=== PATIENT | male | born 1955 | race Caucasian/White ===

== ENCOUNTER 2016-12-15 10:19 | Inpatient (IN) | payer OTHER, MEDICARE ==
[~2016-12-15] VITALS: Ht 180.3 cm; Wt 86.8 kg
[2016-12-15] VITALS (9 sets, daily range): BP systolic 154–197; BP diastolic 77–97; PULSE 69–78; RESP 16–20; TEMP 97.9–99.5; O2SAT 94–97
[~2016-12-15 10:19] MED LIST: AMLO10 PO; FLUO5CRE EXT; GLYB5TAB3 PO; HYDR50TA5 PO; METF850T PO; METO50TA PO
[2016-12-15] MEDS ORDERED: HYDR12.56 PO (10:52)
[2016-12-15] MEDS ORDERED: METO-426 PO (10:52)
[2016-12-15] MEDS ORDERED: AMLO10TA2 PO (10:52)
[2016-12-15] MEDS ORDERED: METF850T PO (10:52)
[2016-12-15] MEDS ORDERED: [UNRECOGNIZED DRUG - CODE] PO (10:52)
[2016-12-15] MEDS ORDERED: NAPR500T PO (10:52)
[2016-12-15] MEDS ORDERED: SODIUM CHLORIDE 0.9% FLUSH 5 ML FLUSH IVF PRN ×2 (11:15→14:45)
[2016-12-15 11:35] LABS: AUTOMATED NEUTROPHIL # 6.2 TH/MM3 (1.8-7.7); BASOPHIL % 0.5 % (0.0-2.0); EOSINOPHIL # 0.3 TH/MM3 (0-0.4); EOSINOPHIL % 3.4 % (0.0-4.0); HEMATOCRIT 41.6 % (39.0-51.0); HEMO FLAGS DIFF FINAL; LYMPH % 20.1 % (9.0-44.0); LYMPHOCYTE # 1.8 TH/MM3 (1.0-4.8); MEAN CELL VOLUME 95.9 FL (80.0-100.0); MEAN CORPUSCULAR HEMOGLOBIN 32.7 PG (27.0-34.0); MEAN CORPUSCULAR HGB CONC 34.1 % (32.0-36.0); MONO % 7.1 % (0.0-8.0); NEUT % 68.9 % (16.0-70.0); PLATELET COUNT 346 TH/MM3 (150-450); RED BLOOD COUNT 4.34 MIL/MM3 (4.50-5.90); WHITE BLOOD COUNT 8.9 TH/MM3 (4.0-11.0)
[2016-12-15 11:54] LABS: CHLORIDE 104 MEQ/L (98-107); POTASSIUM 4.2 MEQ/L (3.5-5.1); SODIUM (NA) 141 MEQ/L (136-145)
[2016-12-15 11:58] LABS: ANION GAP 7 MEQ/L (5-15); BICARBONATE 30.1 MEQ/L (21.0-32.0); BLOOD UREA NITROGEN 21 MG/DL (7-18)
[2016-12-15 11:59] LABS: APTT (PATIENT) 29.5 SEC (24.3-30.1); INTERNATIONAL NORMALIZED RATIO 0.9 RATIO; PROTHROMBIN TIME - PATIENT 10.2 SEC (9.8-11.6)
[2016-12-15 12:01] LABS: ALT (GPT) 16 U/L (12-78); AST (GOT) 10 U/L (15-37); GLOMERULAR FILTRATION RATE 47 ML/MIN (>89)
[2016-12-15 12:03] LABS: TOTAL BILIRUBIN ADULT 0.7 MG/DL (0.2-1.0)
[2016-12-15 12:04] LABS: ALKALINE PHOSPHATASE 93 U/L (45-117)
--- NOTE | 2016-12-15 12:04 | RADHPO ---
EXAM DATE/TIME: 12/15/2016 16:50 [facility] COMPARISON: No previous studies available for comparison. INDICATIONS : Left leg numbness and swelling. MEDICAL HISTORY : None. Diabetic. Cardiovascular problems. Hypertension. Eye cancer. SURGICAL HISTORY : Left eye removed. ENCOUNTER: Initial ACUITY: 3 days PAIN SCORE: 0/10 LOCATION: Left leg. TECHNIQUE: Venous ultrasound of the leg was performed from the inguinal ligament to the proximal calf. Real-coby e, color Doppler and spectral tracing, compression and augmentation techniques were used. FINDINGS: There is normal compressibility of the deep venous system from the inguinal region to the proximal ca lf. No echogenic clot is seen in the lumen of the common femoral, femoral, popliteal, and posterior tibial veins. There is a normal response of the venous system to proximal and distal augmentation an d respiration. CONCLUSION: 1. No evidence of deep venous thrombosis. Raphael Connor MD on December 15, 2016 at 12:02 Board Certified Radiologist. This report was verified electronically.
--- NOTE | 2016-12-15 12:47 | RADHPO ---
EXAM DATE/TIME: 12/15/2016 12:16 [facility] COMPARISON: CT BRAIN W/O CONTRAST, January 06, 2013, 10:35. INDICATIONS : Left lower extremity weakness. RADIATION DOSE: 59.54 CTDIvol (mGy) MEDICAL HISTORY : Hypertension. Diabetes. Left eye cancer. Skin cancer. SURGICAL HISTORY : Left removed secondary to cancer. ENCOUNTER: Initial ACUITY: 3 days PAIN SCALE: 0/10 LOCATION: cranial TECHNIQUE: Multiple contiguous axial images were obtained of the head. Using automated exposure control and adjustment of the mA and/or kV according to patient size, radiation dose was kept as low as reasonably achievable to obtain optimal diagnostic quality images. FINDINGS: CEREBRUM: The ventricles are normal for age. No evidence of midline shift, mass lesion, hemorrha ge or acute infarction. No extra-axial fluid collections are seen. POSTERIOR FOSSA: The cerebellum and brainstem are intact. The 4th ventricle is midline. The cer ebellopontine angle is unremarkable. EXTRACRANIAL: The visualized portion of the orbits is intact. SKULL: The calvaria is intact. No evidence of skull fracture. CONCLUSION: Negative for acute process. Elian Shafer MD FACR on December 15, 2016 at 12:30 Board Certified Radiologist. This report was verified electronically.
--- NOTE | 2016-12-15 13:46 | PD ---
HPI Chief Complaint: Numbness/Tingling Time Seen by Provider: 10:32 Travel History International Travel<30 days: No Contact w/Intl Traveler<30days: No Traveled to known affect area: No History of Present Illness HPI 61-year-old male presents emergency Department with 2 complaints. First complaint is that he has had left lower extremity swelling for the past 2-3 days. Denies any stasis history history of blood clots. Patient denies any shortness of breath chest pain nausea vomiting diarrhea. Patient has a secondary complaint of a facial. 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 He does take medicine for this. States he follows with Dr. Moreno. Apparently 2 days ago patient had fairly sudden onset of a phase and also generalized weakness. His daughter is accompanying him today and states that he was unable to rise from his couch. States that over the next 2 days he had gradual return of his speech but is still having some mild difficulty finding words. Daughter states that she did not notice any facial asymmetry at that time no fevers no headache. A call Dr. Moreno for advice on these symptoms and he told them to come to the emergency department. [facility] Past Medical History Arthritis: Yes Cancer: Yes (SKIN) Cardiovascular Problems: Yes (HTN) Diabetes: Yes (TYPE 2) Patient Takes Glucophage: Yes Diminished Hearing: No Gout: Yes Genitourinary: Yes Hypertension: Yes Kidney Stones: Yes Musculoskeletal: Yes Neurologic: No Reproductive: No Respiratory: No Tetanus Vaccination: Unknown Past Surgical History Abdominal Surgery: No Cardiac Surgery: No Ear Surgery: No Endocrine Surgery: No Eye Surgery: Yes (LT EYE FOR CA) Genitourinary Surgery: Yes (KIDNEY STONE "SOUND TX") Gynecologic Surgery: No Neurologic Surgery: No Oral Surgery: No Thoracic Surgery: No Other Surgery: Yes (FACIAL SKIN CA REMOVED) Social History Alcohol Use: Yes ("RARELY") Tobacco Use: No (QUIT 2013) Substance Use: No Allergies-Medications (Allergen,Severity, Reaction): Coded Allergies: No Known Allergies (Verified , 12/15/16) Reported Meds & Prescriptions Reported Meds & Active Scripts Active Reported Hydrochlorothiazide 12.5 Mg Tab 50 Mg PO DAILY Amlodipine (Amlodipine Besylate) 10 Mg Tab 10 Mg PO DAILY Metformin (Metformin HCl) 850 Mg Tab 850 Mg PO BIDPC With meals Naproxen 500 Mg Tab 500 Mg PO BID PRN Xenazine (Tetrabenazine) 12.5 Mg Tab 25 Mg PO DAILY Metoprolol Tartrate 75 Mg Tab 100 Mg PO DAILY Review of Systems Except as stated in HPI: all other systems reviewed are Neg Physical Exam Narrative GENERAL: Well-developed well-nourished no apparent distress SKIN: Warm and dry. HEAD: Atraumatic. Normocephalic. EYES: Pupils equal and round. No scleral icterus. No injection or drainage. ENT: No nasal bleeding or discharge. Mucous membranes pink and moist. NECK: Trachea midline. No JVD. CARDIOVASCULAR: Regular rate and rhythm. No murmur appreciated. 2+ bilateral equal pulses in all 4 extremities RESPIRATORY: No accessory muscle use. Clear to auscultation. Breath sounds equal bilaterally. GASTROINTESTINAL: Abdomen soft, non-tender, nondistended. Hepatic and splenic margins not palpable. MUSCULOSKELETAL: No obvious deformities. No clubbing. No cyanosis. There is pitting edema of the left lower extremity from the patella distally. NEUROLOGICAL: Awake and alert. Patient has slow movement tremors of all 4 extremities. Could be consistent with [place]'s chorea. He is able to follow commands in all 4 extremities is 5 out of 5 strength. Cranial nerves II through XII are grossly intact and nonfocal. Speech appears fairly normal to me. PSYCHIATRIC: Appropriate mood and affect; insight and judgment normal. Data Data Last Documented VS Vital Signs Date Time Temp Pulse Resp B/P Pulse Ox O2 Delivery O2 Flow Rate FiO2 12/15/16 12:51 70 16 162/80 97 Room Air 12/15/16 10:21 98.4 Orders Electrocardiogram (12/15/16 11:04) Complete Blood Count With Diff (12/15/16 11:04) Comprehensive Metabolic Panel (12/15/16 11:04) Prothrombin Time / Inr (Pt) (12/15/16 11:04) Act Partial Throm Time (Ptt) (12/15/16 11:04) Troponin I (12/15/16 11:04) Thyroid Stimulating Hormone (12/15/16 11:04) Urinalysis - C+S If Indicated (12/15/16 11:04) Ct Brain W/O Iv Contrast(Rout) (12/15/16 11:04) Blood Glucose (12/15/16 11:04) Ecg Monitoring (12/15/16 11:04) Iv Access Insert/Monitor (12/15/16 11:04) Oximetry (12/15/16 11:04) Sodium Chloride 0.9% Flush (Ns Flush) (12/15/16 11:15) Us Leg Venous Doppler (12/15/16 11:04) Admit Order (Ed Use Only) (12/15/16 ) Labs Laboratory Tests Test 12/15/16 11:20 White Blood Count 8.9 TH/MM3 Red Blood Count 4.34 MIL/MM3 Hemoglobin 14.2 GM/DL Hematocrit 41.6 % Mean Corpuscular Volume 95.9 FL Mean Corpuscular Hemoglobin 32.7 PG Mean Corpuscular Hemoglobin 34.1 % Concent Red Cell Distribution Width 14.0 % Platelet Count 346 TH/MM3 Mean Platelet Volume 7.9 FL Neutrophils (%) (Auto) 68.9 % Lymphocytes (%) (Auto) 20.1 % Monocytes (%) (Auto) 7.1 % Eosinophils (%) (Auto) 3.4 % Basophils (%) (Auto) 0.5 % Neutrophils # (Auto) 6.2 TH/MM3 Lymphocytes # (Auto) 1.8 TH/MM3 Monocytes # (Auto) 0.6 TH/MM3 Eosinophils # (Auto) 0.3 TH/MM3 Basophils # (Auto) 0.0 TH/MM3 CBC Comment DIFF FINAL Differential Comment Prothrombin Time 10.2 SEC Prothromb Time International 0.9 RATIO Ratio Activated Partial 29.5 SEC Thromboplast Time Sodium Level 141 MEQ/L Potassium Level 4.2 MEQ/L Chloride Level 104 MEQ/L Carbon Dioxide Level 30.1 MEQ/L Anion Gap 7 MEQ/L Blood Urea Nitrogen 21 MG/DL Creatinine 1.50 MG/DL Estimat Glomerular Filtration 47 ML/MIN Rate Random Glucose 147 MG/DL Calcium Level 8.9 MG/DL Total Bilirubin 0.7 MG/DL Aspartate Amino Transf 10 U/L (AST/SGOT) Alanine Aminotransferase 16 U/L (ALT/SGPT) Alkaline Phosphatase 93 U/L Troponin I LESS THAN 0.02 NG/ML Total Protein 8.1 GM/DL Albumin 3.5 GM/DL Thyroid Stimulating Hormone 1.600 uIU/ML 3rd Gen [facility] Medical Decision Making Medical Screen Exam Complete: Yes Emergency Medical Condition: Yes Interpretation(s) EKG shows normal sinus rhythm with a normal axis and a normal R wave progression. No concerning ST T changes. This is a normal EKG. Differential Diagnosis TIA versus CVA versus neurologic movement disorder versus DVT versus electro- light abnormality versus medication reaction. Narrative Course Patient roomed in the emergency department, signs symptoms consistent with DVT however DVT ultrasound is negative. Certainly could consider his long-term medication as a possibility for his a facial though his symptoms are more concerning for possibility of TIA. A CT head is negative elect lites and blood work are negative at this time. I discussed with the patient at length that he is at risk of having a recurrent stroke within the next 30 days and recommended admission for further risk stratification. Initially reluctant he is agreeable ultimately after his daughter convinced him to stay. Patient was discussed with Dr. Koenig who will admit under observation status. Diagnosis Primary Impression: TIA (transient ischemic attack) Qualified Code: G45.9 - Transient cerebral ischemia, unspecified type Admitting Information Admitting Physician Requests: Observation Condition: Stable Gregor Lebron MD Dec 15, 2016 13:46
[2016-12-15 16:06] LABS: BLOOD, URINE NEG (NEG); GLUCOSE,URINE NEG (NEG); KETONE, URINE NEG (NEG); NITRITE,URINE NEG (NEG); PH, URINE 6.5 (5.0-8.5)
--- NOTE | 2016-12-15 16:08 | RADHPO ---
EXAM DATE/TIME: 12/15/2016 15:44 [facility] COMPARISON: CT BRAIN W/O CONTRAST, December 15, 2016, 12:16. INDICATIONS : Left lower extremity weakness. MEDICAL HISTORY : Hypertension. Diabetes mellitus type 2. carcinoma, eye SURGICAL HISTORY : left eye removed ENCOUNTER: Subsequent ACUITY: 3 day PAIN SCORE: 0/10 LOCATION: cranial TECHNIQUE: Multiplanar, multisequence MRI of the brain was performed without contrast. FINDINGS: CEREBRUM: The ventricles are normal for age. No evidence of midline shift, mass lesion, hemorrhage. A few tiny bilateral old lacunar infarcts are noted in the basal ganglia. No extraaxial fluid collections are seen. The pituitary gland and suprasellar cistern are normal in configuration. WHITE MATTER: No significant signal abnormalities are seen in the white matter. A few high signal spots are seen in the white matter tracts characteristic of ischemic demyelinization This correlates with patient's ag e. POSTERIOR FOSSA: The cerebellum and brainstem are intact. The 4th ventricle is midline. The cerebellopontine angle is unremarkable. The cerebellar tonsils are normal in position. Chronic changes in the midbrain. DIFFUSION IMAGING: Focal small area of restricted diffusion is seen in the high right mid parietal area measuring approx imately 1.3 cm. Characteristic for a focal small acute ischemic infarction. No intracranial hemorrhag e is demonstrated. EXTRACRANIAL: The visualized portions of the orbits and paranasal sinuses are unremarkable. CONCLUSION: 1. Small focal area of restricted diffusion in the high right mid parietal area characteristic of a s mall focal acute nonhemorrhagic ischemic infarct. 2. Several tiny old bilateral lacunar infarcts 3. Chronic white matter changes characteristic for patient's age. Mathieu Michaud MD on December 15, 2016 at 16:02 Board Certified Radiologist. This report was verified electronically.
--- NOTE | 2016-12-15 16:10 | RADHPO ---
EXAM DATE/TIME: 12/15/2016 15:44 [facility] COMPARISON: MRA BRAIN W/O CONTRAST, January 07, 2013, 13:21. INDICATIONS : Left leg weakness. MEDICAL HISTORY : Hypertension. Diabetes mellitus type 2. carcinoma, eye SURGICAL HISTORY : Left eye removed ENCOUNTER: Subsequent ACUITY: 3 day PAIN SCORE: 0/10 LOCATION: cranial Please note a normal MRA of the brain does not entirely exclude the possibility of a small aneurysm, nor the possibility of distal intracranial vessel disease. TECHNIQUE: 3D time of flight MRA was performed. Source images, multiplanar STS MIP, and 3D volume MIP reconstru ctions were reviewed. FINDINGS: There is excellent visualization of the major intracranial arteries out to the second-order branch ve ssels. There is no evidence for aneurysm, vessel truncation or stenosis, and no evidence for vascula r malformation. There is a patent right posterior communicating artery. No new or significant changes compared to the prior exam from 2012. CONCLUSION: Stable and unremarkable MRA brain compared to the prior study from 2012. Mathieu Michaud MD on December 15, 2016 at 16:07 Board Certified Radiologist. This report was verified electronically.
[2016-12-15 16:14] LABS: URINE COLOR STRAW (YELLW/STRAW)
[2016-12-15 16:15] LABS: COMMENT (UR) CULT NOT INDICATED; CULTURE IF INDICATED CULT NOT INDICATED; SQUAMOUS EPITHELIAL CELL URINE 0-2 /hpf (0-5)
--- NOTE | 2016-12-15 16:23 | RADHPO ---
EXAM DATE/TIME: 12/15/2016 15:59 [facility] COMPARISON: US CAROTID ARTERIES, January 07, 2013, 7:59. INDICATIONS : Cerebrovascular accident. MEDICAL HISTORY : Hypertension. Renal calculi. Arthritis. Eye carcinoma. Skin cancer. Gout. Type II Diabetes. SURGICAL HISTORY : Left eye surgery for cancer. Facial skin cancer removed. Blood transfusio ns. ENCOUNTER: Initial ACUITY: 1 day PAIN SCORE: 1/10 LOCATION: Bilateral neck PEAK SYSTOLIC VELOCITIES (cm/sec): ICA/CCA RATIO: Right: 0.9 Left: 0.7 ICA: Right: 95 Left: 92 CCA: Right: 112 Left: 128 ECA: Right: 135 Left: 161 VERTEBRAL: Right: 69 antegrade Left: 29 antegrade Elevated flow velocities and ICA/CCA ratios have been found to correlate with increased degrees of vessel stenosis, calculated as percentage of diameter relative to a normal segment of distal ICA/CCA FINDINGS: RIGHT CAROTID: There is no evidence for a hemodynamically significant carotid stenosis. Minimal int imal hyperplasia is present with scattered calcific plaque. LEFT CAROTID: There is no evidence for a hemodynamically significant carotid stenosis. Minimal inti mal hyperplasia is present with scattered calcific plaque. VERTEBRAL ARTERIES: Flow is antegrade in both vertebral arteries. MISCELLANEOUS: There are no ancillary masses or adenopathy. CONCLUSION: Negative examination for a hemodynamically significant carotid stenosis. Elian Shafer MD FACR Board Certified Radiologist. This report was verified electronically.
--- NOTE | 2016-12-15 16:41 | HHI.HP ---
[facility] Primary Care Physician Rosy Kaminski MD Admission Diagnosis TIA Diagnoses: Chief Complaint: Difficulty walking Travel History International Travel<30 Days: No Contact w/Intl Traveler <30 Da: No Traveled to Known Affected Are: No History of Present Illness Patient is a 61-year-old gentleman with 2 days of difficulty walking. He says he was moving furniture at home and felt his leg pop and extend and noted that he had trouble walking after that. At baseline he has a movement disorder but is quite independent at home without the use of medical devices. His neighbor gave him a walker and he had been using it and noted that he was improving somewhat. Another neighbor found him with difficulty walking brought to the emergency room. He did call his neurologist Dr. Sifuentes was advised him to come to the hospital. He denies altered mental status, speech has not changed, he has left eye enucleation and has been wearing a patch. Per the patient he feels he is improving but still cannot put pressure on his leg. For these reasons the patient was recommended for observation in the hospital Review of Systems Constitutional: DENIES: Diaphoretic episodes, Fatigue, Fever, Weight gain, Weight loss, Chills, Dizziness, Change in appetite, Night Sweats Endocrine: DENIES: Heat/cold intolerance, Polydipsia, Polyuria, Polyphagia Eyes: DENIES: Blurred vision, Diplopia, Eye inflammation, Eye pain, Vision loss , Photosensitivity, Double Vision Ears, nose, mouth, throat: DENIES: Tinnitus, Hearing loss, Vertigo, Nasal discharge, Oral lesions, Throat pain, Hoarseness, Ear Pain, Running Nose, Epistaxis, Sinus Pain, Toothache, Odynophagia Respiratory: DENIES: Apneas, Cough, Snoring, Wheezing, Hemoptysis, Sputum production, Shortness of breath Cardiovascular: DENIES: Chest pain, Palpitations, Syncope, Dyspnea on Exertion , PND, Lower Extremity Edema, Orthopnea, Claudication Gastrointestinal: DENIES: Abdominal pain, Black stools, Bloody stools, Constipation, Diarrhea, Nausea, Vomiting, Difficulty Swallowing, Anorexia Genitourinary: DENIES: Sexual dysfunction, Urinary frequency, Urinary incontinence, Urgency, Hematuria, Dysuria, Nocturia, Penile Discharge, Testicular Pain, Testicular Swelling Musculoskeletal: COMPLAINS OF: Joint pain, Joint Swelling, DENIES: Muscle aches, Stiffness, Back pain, Neck pain Integumentary: DENIES: Abnormal pigmentation, Nail changes, Pruritus, Rash Hematologic/lymphatic: DENIES: Bruising, Lymphadenopathy Neurologic: COMPLAINS OF: Abnormal gait, DENIES: Headache, Localized weakness , Paresthesias, Seizures, Speech Problems, Tremor, Poor Balance Psychiatric: DENIES: Anxiety, Confusion, Mood changes, Depression, Hallucinations, Agitation, Suicidal Ideation, Homicidal Ideation, Delusions Past Family Social History Past Medical History Patient with known coronary form disorder. Diabetes mellitus type 2 Hypertension I cancer and skin cancer Past Surgical History Left eye enucleation, multiple skin cancer removal Reported Medications Reviewed in the medical record, nothing new Allergies: Coded Allergies: No Known Allergies (Verified , 12/15/16) Active Ordered Medications Reviewed in the medical record Family History No family history of movement disorder Family history of diabetes and hypertension, father is alive at 92, mother of old age Physical Exam Vital Signs Vital Signs Date Time Temp Pulse Resp B/P Pulse Ox O2 Delivery O2 Flow Rate FiO2 12/15/16 13:50 74 16 169/89 97 Room Air 12/15/16 12:51 70 16 162/80 97 Room Air 12/15/16 11:31 74 16 154/86 97 Room Air 12/15/16 11:29 16 97 Room Air 12/15/16 10:21 98.4 69 18 154/87 96 Physical Exam GENERAL: This is a well-nourished, well-developed patient, in no apparent distress. SKIN: No rashes, ecchymoses or lesions. Cool and dry. HEAD: Atraumatic. Normocephalic. No temporal or scalp tenderness. EYES: Pupils equal round and reactive. Extraocular motions intact. No scleral icterus. No injection or drainage. ENT: Nose without bleeding, purulent drainage or septal hematoma. Throat without erythema, tonsillar hypertrophy or exudate. Uvula midline. Airway patent. NECK: Trachea midline. No JVD or lymphadenopathy. Supple, nontender, no meningeal signs. CARDIOVASCULAR: Regular rate and rhythm without murmurs, gallops, or rubs. RESPIRATORY: Clear to auscultation. Breath sounds equal bilaterally. No wheezes , rales, or rhonchi. GASTROINTESTINAL: Abdomen soft, non-tender, nondistended. No hepato-splenomegaly , or palpable masses. No guarding. MUSCULOSKELETAL: left leg laterally turned and edematous, other three Extremities without clubbing, cyanosis, or edema. No joint tenderness, effusion , or edema noted. No calf tenderness. Negative Homans sign bilaterally. NEUROLOGICAL: Awake and alert. Cranial nerves II through XII intact. Motor and sensory grossly within normal limits. Five out of 5 muscle strength in all muscle groups. Normal speech. Laboratory Laboratory Tests Test 12/15/16 12/15/16 11:20 15:20 White Blood Count 8.9 Red Blood Count 4.34 Hemoglobin 14.2 Hematocrit 41.6 Mean Corpuscular Volume 95.9 Mean Corpuscular Hemoglobin 32.7 Mean Corpuscular Hemoglobin 34.1 Concent Red Cell Distribution Width 14.0 Platelet Count 346 Mean Platelet Volume 7.9 Neutrophils (%) (Auto) 68.9 Lymphocytes (%) (Auto) 20.1 Monocytes (%) (Auto) 7.1 Eosinophils (%) (Auto) 3.4 Basophils (%) (Auto) 0.5 Neutrophils # (Auto) 6.2 Lymphocytes # (Auto) 1.8 Monocytes # (Auto) 0.6 Eosinophils # (Auto) 0.3 Basophils # (Auto) 0.0 CBC Comment DIFF FINAL Differential Comment Prothrombin Time 10.2 Prothromb Time International 0.9 Ratio Activated Partial 29.5 Thromboplast Time Sodium Level 141 Potassium Level 4.2 Chloride Level 104 Carbon Dioxide Level 30.1 Anion Gap 7 Blood Urea Nitrogen 21 Creatinine 1.50 Estimat Glomerular Filtration 47 Rate Random Glucose 147 Calcium Level 8.9 Total Bilirubin 0.7 Aspartate Amino Transf 10 (AST/SGOT) Alanine Aminotransferase 16 (ALT/SGPT) Alkaline Phosphatase 93 Troponin I LESS THAN 0.02 Total Protein 8.1 Albumin 3.5 Thyroid Stimulating Hormone 1.600 3rd Gen Urine Color STRAW Urine Turbidity CLEAR Urine pH 6.5 Urine Specific Amber 1.012 Urine Protein NEG Urine Glucose (UA) NEG Urine Ketones NEG Urine Occult Blood NEG Urine Nitrite NEG Urine Bilirubin NEG Urine Leukocyte Esterase NEG Urine Squamous Epithelial 0-2 Cells Microscopic Urinalysis Comment CULT NOT INDICATED Result Diagram: 12/15/16 1120 12/15/16 1120 Imaging Last Impressions Lower Extremity Ultrasound 1/16/17 1104 Signed Impressions: Service Date/Time: Thursday, December 15, 2016 16:50 - CONCLUSION: 1. No evidence of deep venous thrombosis. Raphael Connor MD Head CT 12/15/16 1104 Signed Impressions: Service Date/Time: Thursday, December 15, 2016 12:16 - CONCLUSION: Negative for acute process. Elian Shafer MD FACR Head Magnetic Resonance Angiography 12/15/16 0000 Signed Impressions: Service Date/Time: Thursday, December 15, 2016 15:44 - CONCLUSION: Stable and unremarkable MRA brain compared to the prior study from 2013. Mathieu Michaud MD Carotid Artery Ultrasound 12/15/16 0000 Signed Impressions: Service Date/Time: Thursday, December 15, 2016 15:59 - CONCLUSION: Negative examination for a hemodynamically significant carotid stenosis. Elian Shafer MD Brain MRI 12/15/16 0000 Signed Impressions: Service Date/Time: Thursday, December 15, 2016 15:44 - CONCLUSION: 1. Small focal area of restricted diffusion in the high right mid parietal area characteristic of a small focal acute nonhemorrhagic ischemic infarct. 2. Several tiny old bilateral lacunar infarcts 3. Chronic white matter changes characteristic for patient's age. Mathieu Michaud MD Assessment and Plan Problem List: (1) Knee pain ICD Code: M25.569 Status: Acute Plan: Patient difficulty ambulating after overexertion and feeling his knee extended and pop. Patient will have x-ray, rule out occult fracture Is no occult fracture patient may be referred to orthopedics. We'll continue to follow up with neurological workup PT eval pending Linsey Koenig MD Dec 15, 2016 16:40
[2016-12-15] MEDS ORDERED: DEXTROSE 50% IN WATER 50 ML VIAL(D50) IV PUSH PRN (16:45)
[2016-12-15] MEDS ORDERED: GLUCAGON 1 MG/ML VIAL OTHER PRN (16:45)
--- NOTE | 2016-12-15 17:35 | RADHPO ---
EXAM DATE/TIME: 12/15/2016 17:07 [facility] COMPARISON: No previous studies available for comparison. INDICATIONS : No recent trauma, unsteady movements, left hip/knee MEDICAL HISTORY : Hypertension. SURGICAL HISTORY : None. ENCOUNTER: Initial ACUITY: 1 day PAIN SCORE: 5/10 LOCATION: Left hip FINDINGS: Examination of the left hip was performed with AP Pelvis. The primary and secondary trabecular patte rn of the femoral neck is intact. The hip joint is of normal width without significant sclerosis or bony hypertrophy. The acetabulum is grossly intact. CONCLUSION: Negative for fracture or dislocation. Followup in 7-10 days is suggested if symptoms persist. Elian Shafer MD FACR on December 15, 2016 at 17:33 Board Certified Radiologist. This report was verified electronically.
--- NOTE | 2016-12-15 17:37 | RADHPO ---
EXAM DATE/TIME: 12/15/2016 17:13 [facility] COMPARISON: No previous studies available for comparison. INDICATIONS : No recent trauma, unsteady movements, left hip/knee MEDICAL HISTORY : Diabetic. Cardiovascular problems. Hypertension SURGICAL HISTORY : None. ENCOUNTER: Initial ACUITY: 1 day PAIN SCORE: 5/10 LOCATION: Left knee FINDINGS: There is a small joint effusion evident. Bone density is normal. alignment is anatomic. Fracture is not appreciated. CONCLUSION: Small joint effusion without fracture. Elian Shafer MD FACR on December 15, 2016 at 17:33 Board Certified Radiologist. This report was verified electronically.
[2016-12-15] MEDS: INSULIN ASPART SUPPLEMENTAL SCALE SQ SCH (21:00)
[2016-12-15 21:11] LABS: HEMOGLOBIN A1a 0.9 %; HEMOGLOBIN A1b 1.2 %; HEMOGLOBIN Ao 84.1 %; HEMOGLOBIN F 1.2 %; HEMOGLOBIN LA1C 2.2 %
[2016-12-15] MEDS: SODIUM CHLORIDE 0.9% FLUSH 5 ML FLUSH IVF SCH (21:47)
[2016-12-16] VITALS: BP 180/92; PULSE 73; RESP 20; TEMP 98.8; O2SAT 94
[2016-12-16] MEDS ORDERED: diphenhydrAMINE HCL 25 MG CAP PO ONE (01:45)
[2016-12-16 04:00] VITALS: BP 172/82; PULSE 74; RESP 20; TEMP 97; O2SAT 96
[2016-12-16] MEDS: INSULIN ASPART SUPPLEMENTAL SCALE SQ SCH ×2 (07:00→11:00)
[2016-12-16 08:00] VITALS: BP 188/97; PULSE 72; RESP 21; TEMP 98; O2SAT 95
[2016-12-16] MEDS: SODIUM CHLORIDE 0.9% FLUSH 5 ML FLUSH IVF SCH (08:46)
[2016-12-16] MEDS ORDERED: TETRABENAZINE 25 MG PO SCH ×2 (09:00)
[2016-12-16 10:04] LABS: HDL CHOLESTEROL 32.3 MG/DL (40.0-60.0)
--- NOTE | 2016-12-16 10:53 | EKG ---
Date Performed: 12/15/2016 Time Performed: 11:08:10 PTAGE: 61 years EKG: Sinus rhythm Possible anteroseptal infarct - age undetermined Loss of R wave V2,V3 since prior tracing, could be due to lead placement vs interval infarct Abnormal ECG PREVIOUS TRACING : 01/06/2013 10.00 DOCTOR: Santi Peña Interpretating Date/Time 12/16/2016 10:47:26
[2016-12-16 12:00] VITALS: BP 145/89; PULSE 72; RESP 18; TEMP 98.1; O2SAT 94
[2016-12-16] MEDS ORDERED: LIPI20TA PO (12:53)
[2016-12-16] MEDS ORDERED: ASPI325T PO (12:53)
--- NOTE | 2016-12-16 12:54 | HHI.DCPOC ---
Discharge Care Plan Diagnosis: (1) CVA (cerebral vascular accident) Goals to Promote Your Health * To prevent worsening of your condition and complications * To maintain your health at the optimal level Directions to Meet Your Goals Take your medications as prescribed Follow your dietary instruction Follow activity as directed Keep your appointments as scheduled Take your immunizations and boosters as scheduled If your symptoms worsen call your PCP, if no PCP go to Urgent Care Center or Emergency Room Smoking is Dangerous to Your Health. Avoid second hand smoke Call the 24-hour hour crisis hotline for domestic abuse at Linsey Koenig MD Dec 16, 2016 12:54
--- NOTE | 2016-12-16 12:58 | HHI.DS ---
Discharge Summary Admission Date Dec 15, 2016 at 16:44 Discharge Date: Dec 16, 2016 Admitting Diagnosis TIA (1) Knee pain ICD Code: M25.569 (2) CVA (cerebral vascular accident) ICD Code: I63.9 Procedures none Brief History - From Admission Patient is a 61-year-old gentleman with 2 days of difficulty walking. He says he was moving furniture at home and felt his leg pop and extend and noted that he had trouble walking after that. At baseline he has a movement disorder but is quite independent at home without the use of medical devices. His neighbor gave him a walker and he had been using it and noted that he was improving somewhat. Another neighbor found him with difficulty walking brought to the emergency room. He did call his neurologist Dr. Sifuentes was advised him to come to the hospital. He denies altered mental status, speech has not changed, he has left eye enucleation and has been wearing a patch. Per the patient he feels he is improving but still cannot put pressure on his leg. For these reasons the patient was recommended for observation in the hospital CBC/BMP: 12/15/16 1120 12/15/16 1120 Significant Findings Laboratory Tests Test 12/15/16 12/16/16 11:20 05:05 Red Blood Count 4.34 MIL/MM3 (4.50-5.90) Blood Urea Nitrogen 21 MG/DL (7-18) Creatinine 1.50 MG/DL (0.60-1.30) Estimat Glomerular Filtration 47 ML/MIN (>89) Rate Random Glucose 147 MG/DL (74-106) Hemoglobin A1c 6.1 % (4.3-6.0) Aspartate Amino Transf 10 U/L (15-37) (AST/SGOT) Troponin I LESS THAN 0.02 NG/ML (0.02-0.05) Triglycerides Level 177 MG/DL (42-150) HDL Cholesterol 32.3 MG/DL (40.0-60.0) Imaging Last Impressions Lower Extremity Ultrasound 12/15/16 1104 Signed Impressions: Service Date/Time: Thursday, December 15, 2016 16:50 - CONCLUSION: 1. No evidence of deep venous thrombosis. Raphael Connor MD Head CT 12/15/16 1104 Signed Impressions: Service Date/Time: Thursday, December 15, 2016 12:16 - CONCLUSION: Negative for acute process. Elian Shafer MD FACR Knee X-Ray 12/15/16 0000 Signed Impressions: Service Date/Time: Thursday, December 15, 2016 17:13 - CONCLUSION: Small joint effusion without fracture. Elian Shafer MD FACR Hip and Pelvis X-Ray 12/15/16 0000 Signed Impressions: Service Date/Time: Thursday, December 15, 2016 17:07 - CONCLUSION: Negative for fracture or dislocation. Followup in 7-10 days is suggested if symptoms persist. Elian Shafer MD FACR Head Magnetic Resonance Angiography 12/15/16 0000 Signed Impressions: Service Date/Time: Thursday, December 15, 2016 15:44 - CONCLUSION: Stable and unremarkable MRA brain compared to the prior study from 2013. Mathieu Michaud MD Carotid Artery Ultrasound 12/15/16 0000 Signed Impressions: Service Date/Time: Thursday, December 15, 2016 15:59 - CONCLUSION: Negative examination for a hemodynamically significant carotid stenosis. Elian Shafer MD Brain MRI 12/15/16 0000 Signed Impressions: Service Date/Time: Thursday, December 15, 2016 15:44 - CONCLUSION: 1. Small focal area of restricted diffusion in the high right mid parietal area characteristic of a small focal acute nonhemorrhagic ischemic infarct. 2. Several tiny old bilateral lacunar infarcts 3. Chronic white matter changes characteristic for patient's age. Mathieu Michaud MD PE at Discharge GENERAL: This is a well-nourished, well-developed patient, in no apparent distress. Left eye enucleation CARDIOVASCULAR: Regular rate and rhythm without murmurs, gallops, or rubs. RESPIRATORY: Clear to auscultation. Breath sounds equal bilaterally. No wheezes , rales, or rhonchi. GASTROINTESTINAL: Abdomen soft, non-tender, nondistended. Normal active bowel sounds MUSCULOSKELETAL: Left lower extremity weakness although improved since yesterday , improved edema as well, other 3 Extremities without clubbing, cyanosis, or edema. NEURO: Alert & Oriented x4 to person, place, time, situation. Moves all ext x4 Pt update on day of discharge Patient seen today in follow-up for acute infarct. At this time he is not agreeable for further evaluation in the hospital and for home health care. The patient has indeed had some improvement overnight and has long-standing history of neurological findings for which she has quite got accustomed to managing this with assistive devices. Patient has improved and been ambulatory throughout the hospital. This I think is reasonable for him to follow-up with his primary neurologist. Have added aspirin and Lipitor to his current regimen. Hospital Course Was found have evidence of a small right parietal stroke with left leg weakness. Patient has been evaluated by imaging and physical therapy. This time patient will continue with home care. He has declined any further consultation with neurology. Follow-up with his private neurologist Dr. Sifuentes. Patient does have clear social support Pt Condition on Discharge: Good Discharge Disposition: Discharge Home Discharge Time: > 30 minutes Discharge Instructions DIET: Follow Instructions for: Heart Healthy Diet Activities you can perform: Regular-No Restrictions Follow up Referrals: Neurology - 2-3 Days with Roman Sifuentes Md New Medications: Aspirin (Aspirin) 325 Mg Tab 325 MG PO DAILY cva #30 Ref 0 TAB Atorvastatin (Lipitor) 20 Mg Tab 20 MG PO HS Cholesterol Management #30 Ref 0 TAB Continued Medications: Amlodipine (Amlodipine) 10 Mg Tab 10 MG PO DAILY Blood Pressure Management #30 Ref 0 TAB Hydrochlorothiazide (Hydrochlorothiazide) 12.5 Mg Tab 50 MG PO DAILY #30 Ref 0 TAB Metformin (Metformin) 850 Mg Tab 850 MG PO BIDPC With meals Blood Sugar Management Ref 0 TAB Metoprolol Tartrate (Metoprolol Tartrate) 75 Mg Tab 100 MG PO DAILY #30 Ref 0 TAB Naproxen (Naproxen) 500 Mg Tab 500 MG PO BID PRN PAIN 1 TO 10 AND/OR AGITATION #60 Ref 0 TAB Tetrabenazine (Xenazine) 12.5 Mg Tab 25 MG PO DAILY Linsey Koenig MD Dec 16, 2016 12:58
--- NOTE | 2016-12-16 21:01 | EC ---
Study Study Date:12/16/2016 STUDY CONCLUSIONS SUMMARY - Left ventricle: The cavity size was normal. Wall thickness was normal. Systolic function was normal. The estimated ejection fraction was in the range of 55% to 60%. Wall motion was normal; there were no regional wall motion abnormalities. - Aortic valve: Valve area: 1.21cm^2(VTI). Valve area: 1.34cm^2 (Vmax). - Mitral valve: Mild regurgitation. - Tricuspid valve: Mild regurgitation. - Pulmonary arteries: PA peak pressure: 42mm Hg (S). Impressions: No cardiac source of emboli was indentified. If LV function is below 40, please consider prescribing an ACEI or ARB or document rationale for non-use. PROCEDURE DATA STUDY STATUS: Elective. Procedure: Transthoracic echocardiography. Image quality was good. Scanning was performed from the parasternal, apical, and subcostal acoustic windows. Study completion: The patient tolerated the procedure well. Transthoracic echocardiography. M-mode, complete 2D, complete spectral Doppler, and color Doppler. Patient status: Inpatient. CARDIAC ANATOMY LEFT VENTRICLE: The cavity size was normal. Wall thickness was normal. Systolic function was normal. The estimated ejection fraction was in the range of 55% to 60%. Wall motion was normal; there were no regional wall motion abnormalities. AORTIC VALVE: Trileaflet; normal thickness leaflets. Doppler: Transvalvular velocity was within the normal range. There was no stenosis. No regurgitation. Valve area: 1.21cm^2(VTI). Valve area: 1.34cm^2 (Vmax). Mean gradient: 8mm Hg (S). Peak gradient: 14mm Hg (S). AORTA: Aortic root: The aortic root was normal in size. MITRAL VALVE: Structurally normal valve. Doppler: Transvalvular velocity was within the normal range. There was no evidence for stenosis. Mild regurgitation. LEFT ATRIUM: The atrium was normal in size. RIGHT VENTRICLE: The cavity size was normal. Wall thickness was normal. PULMONIC VALVE: Doppler: Transvalvular velocity was within the normal range. There was no evidence for stenosis. No regurgitation. TRICUSPID VALVE: Structurally normal valve. Doppler: Transvalvular velocity was within the normal range. Mild regurgitation. PULMONARY ARTERY: The main pulmonary artery was normal-sized. Systolic pressure was within the normal range. RIGHT ATRIUM: The atrium was normal in size. PERICARDIUM: There was no pericardial effusion. SYSTEMIC VEINS: Inferior vena cava: The vessel was normal in size. BASIC MEASUREMENTS ADULT NORMAL Left ventricle LV internal dimension, ED, chordal level, 48.7 mm 43-52 PLAX LV internal dimension, ES, chordal level, 35.6 mm 23-38 PLAX Fractional shortening, chordal level, PLAX *27 % >29 LV posterior wall thickness, ED 16.6 mm IVS/LVPW ratio, ED 1.05 <1.3 Ventricular septum Septal thickness, ED 17.4 mm Aortic valve Leaflet separation 20 mm 15-26 Right ventricle RV internal dimension, ED, PLAX 23.4 mm 19-38 BASIC MEASUREMENTS ADULT NORMAL Aortic valve Leaflet separation 20 mm 15-26 Aorta Root diameter, ED 34 mm 20-37 Left atrium Anterior-posterior dimension, ES *46 mm 19-40 LA/aortic root ratio 1.35 DOPPLER MEASUREMENTS ADULT NORMAL Main pulmonary artery Pressure, S *42 mm Hg =30 Aortic valve Peak velocity, S 190 cm/s Mean velocity, S 128 cm/s VTI, S 39.2 cm Mean gradient, S 8 mm Hg Peak gradient, S 14 mm Hg Valve area, VTI 1.21 cm^2 Valve area, Vmax 1.34 cm^2 Tricuspid valve Regurgitant peak velocity 281 cm/s Peak RV-RA gradient, S 32 mm Hg Maximal regurgitant velocity 281 cm/s Systemic veins Estimated CVP 10 mm Hg Right ventricle RV pressure, S *42 mm Hg <30 LEGEND: Mean values are shown as u=mean value. Asterisk (*) ramirez values outside specified normal range. Prepared and signed by Mikael Monroe [id number]
== END 2016-12-16 14:57 | disposition home or self-care (01) | DRG 65 ==
LOC: PHED 10:19 → PHEDA 13:36 → OBSVTOIN 16:44 → PH3A 18:27
PROVIDERS: ADMIT Hospitalist; ATTEND Hospitalist
DX: I63.9 Cerebral infarction, unspecified (principal); G25.9 Extrapyramidal and movement disorder, unspecified; I10 Essential (primary) hypertension; Z85.828 Personal history of other malignant neoplasm of skin; Z87.442 Personal history of urinary calculi; M10.9 Gout, unspecified; M19.90 Unspecified osteoarthritis, unspecified site; E11.9 Type 2 diabetes mellitus without complications; Z79.84 Long term (current) use of oral hypoglycemic drugs; R26.2 Difficulty in walking, not elsewhere classified; M25.569 Pain in unspecified knee
CPT/HCPCS: 70450; 70544; 70551; 73502; 73564; 80053; 80061; 81001; 82948; 83036; 84443; 84484; 85025; 85610; 85730; 93005; 93306; 93880; 93971

== ENCOUNTER 2018-04-02 08:18 | Emergency (ER) | payer MEDICARE, OTHER ==
[2018-04-02] VITALS (9 sets, daily range): BP systolic 182–228; BP diastolic 74–109; PULSE 66–71; RESP 16–18; TEMP 97.5; O2SAT 97–99
[~2018-04-02] VITALS: Ht 180.3 cm; Wt 78.0 kg
[~2018-04-02 08:18] MED LIST changes: -AMLO10 PO; +AMLO10TA2 PO; +ASPI-183 PO; -FLUO5CRE EXT; -GLYB5TAB3 PO; +HYDR12.56 PO; -HYDR50TA5 PO; +LIPI20TA PO; +METO-426 PO; -METO50TA PO; +NAPR500T2 PO; +[UNRECOGNIZED DRUG - CODE] PO
--- NOTE | 2018-04-02 08:51 | PD ---
HPI Chief Complaint: Abdominal Pain Time Seen by Provider: 08:43 Travel History International Travel<30 days: No Contact w/Intl Traveler<30days: No Traveled to known affect area: No History of Present Illness HPI This 62-year-old male is complaining of abdominal pain. Says the pain is quite severe. He started having some pain last night. He went to his neighbor who is a nurse and she gave him some medication which he believes was an antacid. He felt a bit better and was able to sleep at night. He woke up this morning and the pain was more severe. He has no history of ulcer. He says he does not drink. He does have a history of hypertension but did not take his medication this morning. He is feeling nauseated. He has a history of basal cell cancer and has had an enucleation of his left eye. He has skin cancer on his face. He denies any history of abdominal surgery. He has been a smoker in the past but stopped about 4 years ago. He apparently has a movement disorder that has not yet been diagnosed. 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 He has type 2 diabetes PFSH Past Medical History Arthritis: Yes Asthma: No Anxiety: No Depression: No Heart Rhythm Problems: No Cancer: Yes (SKIN) Cardiovascular Problems: Yes (HTN) Chest Pain: No Congestive Heart Failure: No COPD: No Diabetes: Yes (TYPE 2) Patient Takes Glucophage: Yes Diminished Hearing: No Endocrine: Yes GERD: No Gout: Yes Genitourinary: Yes Headaches: Yes Hiatal Hernia: No Hypertension: Yes Immune Disorder: Yes (gout) Kidney Stones: Yes (no longer have problems for 6-7years) Musculoskeletal: Yes (gout) Neurologic: Yes Psychiatric: No Reproductive: No Respiratory: Yes Radiation Therapy: Yes (every day for 30 days-2016) Sickle Cell Disease: No Sleep Apnea: No Ulcer: No Influenza Vaccination: No Past Surgical History Abdominal Surgery: No Cardiac Surgery: No Ear Surgery: No Endocrine Surgery: No Eye Surgery: Yes (LT EYE FOR CA) Genitourinary Surgery: Yes (KIDNEY STONE "SOUND TX") Gynecologic Surgery: No Neurologic Surgery: No Oral Surgery: No Thoracic Surgery: No Other Surgery: Yes (FACIAL SKIN CA REMOVED) Social History Alcohol Use: Yes ("RARELY") Tobacco Use: No (QUIT 2013) Substance Use: No Allergies-Medications (Allergen,Severity, Reaction): Coded Allergies: No Known Allergies (Verified Allergy, Unknown, 04/02/18) Reported Meds & Prescriptions Reported Meds & Active Scripts Active Aspirin 325 Mg Tab 325 Mg PO DAILY Reported Atorvastatin (Atorvastatin Calcium) 40 Mg Tab 40 Mg PO HS Triamterene-Hydrochlorothiazide 37.5-25 Mg Cap 2 Cap PO DAILY Amlodipine (Amlodipine Besylate) 10 Mg Tab 10 Mg PO DAILY Metformin (Metformin HCl) 850 Mg Tab 850 Mg PO BIDPC With meals Xenazine (Tetrabenazine) 12.5 Mg Tab 25 Mg PO DAILY Metoprolol Tartrate 75 Mg Tab 100 Mg PO DAILY Review of Systems General / Constitutional: No: Fever, Chills Eyes: No: Diploplia, Blurred Vision HENT: No: Headaches, Vertigo Cardiovascular: No: Chest Pain or Discomfort, Palpitations Respiratory: No: Cough, Shortness of Breath Gastrointestinal: Positive: Nausea, Abdominal Pain, No: Vomiting Genitourinary: No: Urgency, Frequency Musculoskeletal: No: Myalgias Skin: No Rash, No Itching Neurologic: No: Weakness, Dizziness Endocrine: No: Heat Intolerance Hematologic/Lymphatic: No: Easy Bruising Physical Exam Narrative GENERAL: Well-developed male SKIN: Focused skin assessment warm/dry. HEAD: Atraumatic. Normocephalic. EYES: Left eye is absent ENT: No nasal bleeding or discharge. Mucous membranes pink and moist. NECK: Trachea midline. No JVD. CARDIOVASCULAR: Regular rate and rhythm. No murmur appreciated. RESPIRATORY: No accessory muscle use. Clear to auscultation. Breath sounds equal bilaterally. GASTROINTESTINAL: Abdomen soft, mild diffuse tenderness, nondistended. Hepatic and splenic margins not palpable. MUSCULOSKELETAL: No obvious deformities. No clubbing. No cyanosis. No edema. NEUROLOGICAL: Awake and alert. No obvious cranial nerve deficits. Motor grossly within normal limits. Normal speech. PSYCHIATRIC: Appropriate mood and affect; insight and judgment normal. Data Data Last Documented VS Vital Signs Date Time Temp Pulse Resp B/P (MAP) Pulse Ox O2 Delivery O2 Flow Rate FiO2 04/02/18 11:37 68 16 191/87 (121) 99 Room Air 04/02/18 08:19 97.5 Orders Orders Complete Blood Count With Diff (04/02/18 08:48) Comprehensive Metabolic Panel (04/02/18 08:48) Lipase (04/02/18 08:48) Prothrombin Time / Inr (Pt) (04/02/18 08:48) Act Partial Throm Time (Ptt) (04/02/18 08:48) Urinalysis - C+S If Indicated (04/02/18 08:48) Ct Abd/Pel W Iv Contrast(Rout) (04/02/18 08:48) Iv Access Insert/Monitor (04/02/18 08:48) Ecg Monitoring (04/02/18 08:48) Oximetry (04/02/18 08:48) Hydromorphone Pf Inj (Dilaudid Pf Inj) (04/02/18 09:00) Ondansetron Inj (Zofran Inj) (04/02/18 09:00) Pantoprazole Inj (Protonix Inj) (04/02/18 09:00) Sodium Chlor 0.9% 1000 Ml Inj (Ns 1000 M (04/02/18 09:00) Sodium Chloride 0.9% Flush (Ns Flush) (04/02/18 09:00) Clonidine (Catapres) (04/02/18 09:45) Iohexol 350 Inj (Omnipaque 350 Inj) (04/02/18 10:20) Metoprolol Tartrate (Lopressor) (04/02/18 11:00) Amlodipine (Norvasc) (04/02/18 11:00) Electrocardiogram-Peds (04/02/18 11:01) Chest, Single Ap (04/02/18 11:01) Hydromorphone Pf Inj (Dilaudid Pf Inj) (04/02/18 12:15) Labs Laboratory Tests Test 04/02/18 09:00 04/02/18 11:10 White Blood Count 8.8 TH/MM3 Red Blood Count 4.34 MIL/MM3 Hemoglobin 14.3 GM/DL Hematocrit 41.2 % Mean Corpuscular Volume 94.9 FL Mean Corpuscular Hemoglobin 32.9 PG Mean Corpuscular Hemoglobin Concent 34.7 % Red Cell Distribution Width 13.2 % Platelet Count 265 TH/MM3 Mean Platelet Volume 8.8 FL Neutrophils (%) (Auto) 66.5 % Lymphocytes (%) (Auto) 22.4 % Monocytes (%) (Auto) 4.7 % Eosinophils (%) (Auto) 4.0 % Basophils (%) (Auto) 2.4 % Neutrophils # (Auto) 5.8 TH/MM3 Lymphocytes # (Auto) 2.0 TH/MM3 Monocytes # (Auto) 0.4 TH/MM3 Eosinophils # (Auto) 0.3 TH/MM3 Basophils # (Auto) 0.2 TH/MM3 CBC Comment DIFF FINAL Differential Comment Prothrombin Time 10.0 SEC Prothromb Time International Ratio 1.0 RATIO Activated Partial Thromboplast Time 26.9 SEC Blood Urea Nitrogen 25 MG/DL Creatinine 1.60 MG/DL Random Glucose 130 MG/DL Total Protein 8.2 GM/DL Albumin 3.8 GM/DL Calcium Level 9.5 MG/DL Alkaline Phosphatase 165 U/L Aspartate Amino Transf (AST/SGOT) 14 U/L Alanine Aminotransferase (ALT/SGPT) 21 U/L Total Bilirubin 0.6 MG/DL Sodium Level 143 MEQ/L Potassium Level 4.2 MEQ/L Chloride Level 111 MEQ/L Carbon Dioxide Level 25.5 MEQ/L Anion Gap 7 MEQ/L Estimat Glomerular Filtration Rate 44 ML/MIN Lipase 386 U/L Urine Collection Type CLEAN CATCH Urine Color YELLOW Urine Turbidity CLEAR Urine pH 5.5 Urine Specific [place] 1.010 Urine Protein NEG mg/dL Urine Glucose (UA) NEG mg/dL Urine Ketones NEG mg/dL Urine Occult Blood NEG Urine Nitrite NEG Urine Bilirubin NEG Urine Urobilinogen 0.2 MG/DL Urine Leukocyte Esterase NEG Urine RBC 0-3 /hpf Urine Squamous Epithelial Cells 0-5 /hpf Microscopic Urinalysis Comment CULT NOT INDICATED Urine Collection Time 11:10 MDM Medical Decision Making Medical Screen Exam Complete: Yes Emergency Medical Condition: Yes Medical Record Reviewed: Yes Differential Diagnosis Differential includes gastritis, pancreatitis, biliary disease Narrative Course Patient was given 1 mg Dilaudid and fairly good response of the pain. His hemoglobin is 14 with a white count of 8.8. BUN is 25 with creatinine of 1.6. His creatinine was 1.5 in [address] was obtained. The left kidney is somewhat atrophic. In the right kidney there is a segmental area of hypodensity suggestive of a renal infarct there is also severe atherosclerotic disease with fusiform infrarenal aortic aneurysm measuring 5.2 x 4.9 cm. chest x -ray shows mild compensated cardiomegaly. EKG shows normal sinus rhythm. Case was discussed with Dr. Jane who advises he will follow the patient as an outpatient. He says that the pain is controlled and the patient can be released. On reassessing the patient he reports some discomfort but he says is not as severe as before. He appears fairly comfortable. I will give an additional dose of pain medication now. The patient has expressed a strong desire to go home. Dr. Jane has also recommended the patient should be on aspirin and statin. He is on both of these medications at present. He will be released with instructions to follow-up with Dr. Jane Diagnosis Primary Impression: Renal infarct Additional Impression: Abdominal aortic aneurysm Additional Instructions: continue your aspirin and atorvastatin. Call Dr Jane for appointment [phone] Scripts Hydrocodone-Acetaminophen (Colbert) 7.5-325 mg Tab 1 TAB PO Q4H Y for PAIN, #12 TAB 0 Refills Prov: Eren Mancini MD 04/02/18 Disposition: 01 DISCHARGE HOME Condition: Stable Eren Mancini MD April 02, 2018 08:51
[2018-04-02] MEDS ORDERED: SODIUM CHLOR 0.9% 1000 ML INJ 1,000 ML IV ONE (09:00)
[2018-04-02] MEDS ORDERED: PANTOPRAZOLE SODIUM 40 MG VIAL IVP ONE (09:00)
[2018-04-02] MEDS ORDERED: HYDROmorphone HCL PF 2 MG/ML VIAL IVS ONE (09:00)
[2018-04-02] MEDS ORDERED: ONDANSETRON HCL 4 MG/2 ML VIAL IVP ONE (09:00)
[2018-04-02] MEDS ORDERED: SODIUM CHLORIDE 0.9% FLUSH 10 ML FLUSH IV FLUSH PRN (09:00)
[2018-04-02] MEDS ORDERED: TRIA37.53 PO (09:07)
[2018-04-02] MEDS ORDERED: ATOR40TA16 PO (09:07)
[2018-04-02 09:08] LABS: AUTOMATED NEUTROPHIL # 5.8 TH/MM3 (1.8-7.7); BASOPHIL # 0.2 TH/MM3 (0-0.2); BASOPHIL % 2.4 % (0.0-2.0); EOSINOPHIL # 0.3 TH/MM3 (0-0.4); HEMATOCRIT 41.2 % (39.0-51.0); HEMOGLOBIN 14.3 GM/DL (13.0-17.0); LYMPH % 22.4 % (9.0-44.0); MEAN CELL VOLUME 94.9 FL (80.0-100.0); MEAN CORPUSCULAR HEMOGLOBIN 32.9 PG (27.0-34.0); MEAN CORPUSCULAR HGB CONC 34.7 % (32.0-36.0); MEAN PLATELET VOLUME 8.8 FL (7.0-11.0); MONO % 4.7 % (0.0-8.0); MONOCYTE # 0.4 TH/MM3 (0-0.9); NEUT % 66.5 % (16.0-70.0); PLATELET COUNT 265 TH/MM3 (150-450); RED BLOOD COUNT 4.34 MIL/MM3 (4.50-5.90); RED CELL DISTRIBUTION WIDTH 13.2 % (11.6-17.2); WHITE BLOOD COUNT 8.8 TH/MM3 (4.0-11.0)
[2018-04-02] MEDS ORDERED: cloNIDine HCL 0.1 MG TAB PO ONE (09:45)
[2018-04-02 09:51] LABS: CALCIUM 9.5 MG/DL (8.5-10.1)
[2018-04-02 09:52] LABS: ALBUMIN 3.8 GM/DL (3.4-5.0); BICARBONATE 25.5 MEQ/L (21.0-32.0); GLUCOSE,RANDOM 130 MG/DL (74-106)
[2018-04-02 09:55] LABS: AST (GOT) 14 U/L (15-37)
[2018-04-02 09:57] LABS: TOTAL PROTEIN 8.2 GM/DL (6.4-8.2)
[2018-04-02 09:58] LABS: ALKALINE PHOSPHATASE 165 U/L (45-117)
[2018-04-02 09:59] LABS: GLOMERULAR FILTRATION RATE 44 ML/MIN (>89)
[2018-04-02 10:00] LABS: CHLORIDE 111 MEQ/L (98-107); SODIUM (NA) 143 MEQ/L (136-145)
[2018-04-02 10:09] LABS: BLOOD UREA NITROGEN 25 MG/DL (7-18)
[2018-04-02 10:10] LABS: ALT (GPT) 21 U/L (12-78)
[2018-04-02 10:16] LABS: TOTAL BILIRUBIN ADULT 0.6 MG/DL (0.2-1.0)
[2018-04-02] MEDS ORDERED: IOHEXOL 350 MG/ML 10 ML VIAL (for RAD DIAG) IVCONTRAST ONE (10:20)
--- NOTE | 2018-04-02 10:40 | RADRPT ---
EXAM DATE/TIME: 04/02/2018 10:08 [facility] COMPARISON: No previous studies available for comparison. INDICATIONS : Abdominal pain and cramping. Nausea. IV CONTRAST: 85 cc Omnipaque 350 (iohexol) IV ORAL CONTRAST: No oral contrast ingested. RADIATION DOSE: 11.14 CTDIvol (mGy) MEDICAL HISTORY : Renal calculi. Diabetes mellitus type 2. Hypertension. Left eye cancer. SURGICAL HISTORY : Left eye removed. ENCOUNTER: Initial ACUITY: 1 day PAIN SCALE: 6/10 LOCATION: Abdomen. TECHNIQUE: Volumetric scanning of the abdomen and pelvis was performed. Using automated exposure control and ad justment of the mA and/or kV according to patient size, radiation dose was kept as low as reasonably achievable to obtain optimal diagnostic quality images. DICOM format image data is available electro nically for review and comparison. FINDINGS: LOWER LUNGS: There is an 8 mm left lower lobe noncalcified pulmonary nodule. Left ventricle is mildly enlarged. LIVER: The liver is normal in size and there is an incidental 4 mm low density lesion in the liver dome on i mage 14 that is too small to characterize.. There is no dilation of the biliary tree. No calcified gallstones. SPLEEN: Normal size without lesion. PANCREAS: Within normal limits. KIDNEYS: Left kidney is severely atrophic with cortical thinning. At the upper pole of the left kidney there i s a simple cyst measuring 8 mm. In the lower pole anteriorly there is a rim calcified low density les ion measuring 11 mm and at the lower pole posteriorly there is a rim calcified low density lesion blayne suring 3.1 cm. Within the right mid to lower pole kidney along the posterior cortex there is a segmen charleen area of hypodensity without any surrounding inflammatory change. No hydronephrosis is present. ADRENAL GLANDS: There is enlargement of the right adrenal gland with masslike area measuring 1.9 x 1.5 cm with [place] measurements approximately 20. Left adrenal gland is within normal limits. VASCULAR: There is severe atherosclerotic disease of the abdominal aorta and pelvic arterial vessels. A fusifor m infrarenal abdominal aortic aneurysm measures up to 5.2 x 4.9 cm. BOWEL/MESENTERY: The stomach, small bowel, and colon demonstrate no acute abnormality. There is no free intraperitone al air or fluid. The appendix and terminal ileum are normal. Mild sigmoid diverticulosis is present. ABDOMINAL WALL: Within normal limits. RETROPERITONEUM: There is no lymphadenopathy. BLADDER: No wall thickening or mass. REPRODUCTIVE: Prostate gland is mildly enlarged. INGUINAL: There is no lymphadenopathy or hernia. MUSCULOSKELETAL: There are mild degenerative changes of the lumbar spine. CONCLUSION: 1. There is a focal hypoenhancing area in the right mid to lower pole kidney in a segmental distribut ion. The appearance is suggestive of a renal infarct. Less commonly, focal infection could have this appearance, but there are no inflammatory changes in the adjacent tissue to suggest an infectious or inflammatory process. Suggest followup to assess for resolution. 2. There is severe atherosclerotic disease with fusiform infrarenal aortic aneurysm measuring up to 5 .2 x 4.9 cm. 3. Left kidney is severely atrophic, presumably related to renal vascular disease. The left kidney co ntains 2 rim calcified low density lesions at the lower pole measuring up to 3.2 cm which do not meet criteria for simple cysts. These should undergo elective further characterization with renal protoco l CT or MRI when patient condition permits. 4. There is an indeterminate right adrenal gland mass measuring up to 1.9 cm. It does not meet criter ia for an adenoma. Suggest attention to this at followup imaging which could be performed with adrena l protocol CT or MRI. 5. Nonspecific 8mm pulmonary nodule in the left lower lobe. Suggest correlating with any prior imagin g studies that could confirm longer-term stability. If none are available suggest followup chest CT i n the next 3-6 months. Kristian Colbert MD on April 02, 2018 at 10:27 Board Certified Radiologist. This report was verified electronically.
[2018-04-02] MEDS ORDERED: amLODIPine BESYLATE 5 MG TAB PO ONE (11:00)
[2018-04-02] MEDS ORDERED: METOPROLOL TARTRATE 50 MG TAB PO ONE (11:00)
[2018-04-02 11:16] LABS: BILIRUBIN, URINE NEG (NEG); BLOOD, URINE NEG (NEG); GLUCOSE,URINE NEG (NEG); KETONE, URINE NEG (NEG); NITRITE,URINE NEG (NEG); PH, URINE 5.5 (5.0-8.5); URINE COLOR YELLOW (YELLW/STRAW); URINE LEUKOCYTE ESTERASE NEG (NEG)
[2018-04-02 11:21] LABS: RBC, URINE 0-3 /hpf (0-3); SQUAMOUS EPITHELIAL CELL URINE 0-5 /hpf (0-5)
--- NOTE | 2018-04-02 11:29 | RADRPT ---
EXAM DATE/TIME: 04/02/2018 11:12 [place] COMPARISON: No previous studies available for comparison. INDICATIONS : Cough. MEDICAL HISTORY : Renal calculi. Diabetes mellitus type 2. Hypertension. Left eye cancer SURGICAL HISTORY : left eye removed ENCOUNTER: Initial ACUITY: 2 days PAIN SCORE: 2/10 LOCATION: middle abdomen FINDINGS: A single view of the chest demonstrates the lungs to be symmetrically aerated without evidence of mas s, infiltrate or effusion. Mild compensated cardiomegaly. Osseous structures are intact. CONCLUSION: Compensated cardiomegaly otherwise negative. Elian Shafer MD FACR on April 02, 2018 at 11:26 Board Certified Radiologist. This report was verified electronically.
[2018-04-02] MEDS ORDERED: HYDR-3288 PO (12:11)
[2018-04-02] MEDS ORDERED: HYDROmorphone HCL PF 2 MG/ML VIAL IV PUSH ONE (12:15)
--- NOTE | 2018-04-02 20:12 | EKG ---
Date Performed: 04/02/2018 Time Performed: 11:13:29 PTAGE: 62 years EKG: Sinus rhythm NORMAL ECG Since the PREVIOUS TRACING , no significant change noted PREVIOUS TRACIN12/15/2016 11.08 DOCTOR: Ken Dill Interpretating Date/Time 04/02/2018 16:47:13
== END 2018-04-02 12:55 | disposition home or self-care (01) ==
LOC: PHED 08:18
DX: N28.0 Ischemia and infarction of kidney (principal); I71.4 Abdominal aortic aneurysm, without rupture; I10 Essential (primary) hypertension; G25.9 Extrapyramidal and movement disorder, unspecified; E11.9 Type 2 diabetes mellitus without complications; M19.90 Unspecified osteoarthritis, unspecified site; M10.9 Gout, unspecified; R91.1 Solitary pulmonary nodule; I51.7 Cardiomegaly
CPT/HCPCS: 71045; 74177; 80053; 81001; 83690; 85025; 85610; 85730; 93005; 96361; 96374; 96375; 96376; 99285; C9113; J1170; J2405; J7030; Q9967

== ENCOUNTER 2018-04-05 13:34 | Emergency (ER) | payer OTHER ==
[~2018-04-05] VITALS: Ht 180.3 cm; Wt 79.5 kg
[~2018-04-05 13:34] MED LIST changes: +ATOR40TA16 PO; +HYDR-3288 PO; -HYDR12.56 PO; -LIPI20TA PO; -NAPR500T2 PO; +TRIA37.53 PO
[2018-04-05 13:42] VITALS: BP 182/86; PULSE 66; RESP 20; TEMP 99; O2SAT 97
--- NOTE | 2018-04-05 14:47 | PD ---
HPI Chief Complaint: GI Complaint Time Seen by Provider: 14:42 Travel History International Travel<30 days: No Contact w/Intl Traveler<30days: No Traveled to known affect area: No History of Present Illness HPI 62-year-old male presents the emergency department stating that he needs imaging of his aortic aneurysm. Patient was seen and evaluated in [place] on Thursday. This was for abdominal pain, mostly surrounding his umbilicus. 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 His aortic aneurysm was also found to be larger than the previous imaging and patient was to follow-up with Dr. Jane. He was given pain control and patient states his pain has been 100% controlled since this time. He is accompanied by his neighbor who is very concerned about his aortic aneurysm increasing in size. She states he has been eating or drinking. She says he has no appetite. He has not had a bowel movement for 2 days. She states that Dr. Yung, his primary care provider advised to come to the emergency department for further imaging of his aortic aneurysm to make sure it has not dissected. Patient again reports absolutely no pain. He tells me he is only here because his doctor wants "pictures taken of him." PFSH Past Medical History Arthritis: Yes Asthma: No Anxiety: No Depression: No Heart Rhythm Problems: No Cancer: Yes (SKIN) Cardiovascular Problems: Yes (HTN) Chest Pain: No Congestive Heart Failure: No COPD: No Diabetes: Yes (TYPE 2) Diminished Hearing: No Endocrine: Yes GERD: No Gout: Yes Genitourinary: Yes Headaches: Yes Hiatal Hernia: No Hypertension: Yes Immune Disorder: Yes (gout) Kidney Stones: Yes (no longer have problems for 6-7years) Musculoskeletal: Yes (gout) Neurologic: Yes Psychiatric: No Reproductive: No Respiratory: Yes Radiation Therapy: Yes (every day for 30 days-2016) Sickle Cell Disease: No Sleep Apnea: No Ulcer: No Past Surgical History Abdominal Surgery: No Cardiac Surgery: No Ear Surgery: No Endocrine Surgery: No Eye Surgery: Yes (LT EYE FOR CA) Genitourinary Surgery: Yes (KIDNEY STONE "SOUND TX") Gynecologic Surgery: No Neurologic Surgery: No Oral Surgery: No Thoracic Surgery: No Other Surgery: Yes (FACIAL SKIN CA REMOVED) Social History Alcohol Use: Yes ("RARELY") Tobacco Use: No (QUIT 2013) Substance Use: No Allergies-Medications (Allergen,Severity, Reaction): Coded Allergies: No Known Allergies (Verified Allergy, Unknown, 04/02/18) Reported Meds & Prescriptions Reported Meds & Active Scripts Active [place] (Hydrocodone-Acetaminophen) 7.5-325 mg Tab 1 Tab PO Q4H PRN Aspirin 325 Mg Tab 325 Mg PO DAILY Reported Atorvastatin (Atorvastatin Calcium) 40 Mg Tab 40 Mg PO HS Triamterene-Hydrochlorothiazide 37.5-25 Mg Cap 2 Cap PO DAILY Amlodipine (Amlodipine Besylate) 10 Mg Tab 10 Mg PO DAILY Metformin (Metformin HCl) 850 Mg Tab 850 Mg PO BIDPC With meals Metoprolol Tartrate 75 Mg Tab 100 Mg PO DAILY Review of Systems Except as stated in HPI: all other systems reviewed are Neg Physical Exam Narrative GENERAL: Well-nourished elderly male patient in no acute distress SKIN: Focused skin assessment warm/dry. HEAD: Atraumatic. Normocephalic. EYES: Pupils equal and round. No scleral icterus. No injection or drainage. ENT: No nasal bleeding or discharge. Mucous membranes pink and moist. NECK: Trachea midline. No JVD. CARDIOVASCULAR: Regular rate and rhythm. 2/6 systolic murmur. RESPIRATORY: No accessory muscle use. Clear to auscultation. Breath sounds equal bilaterally. GASTROINTESTINAL: Abdomen soft, non-tender, nondistended. No guarding. No rebound tenderness. Hepatic and splenic margins not palpable. MUSCULOSKELETAL: No obvious deformities. No clubbing. No cyanosis. No edema. NEUROLOGICAL: Awake and alert. No obvious cranial nerve deficits. Motor grossly within normal limits. Normal speech. PSYCHIATRIC: Appropriate mood and affect; insight and judgment normal. Data Data Last Documented VS Vital Signs Date Time Temp Pulse Resp B/P (MAP) Pulse Ox O2 Delivery O2 Flow Rate FiO2 04/05/18 18:10 04/05/18 16:41 63 18 95 Room Air 04/05/18 13:42 99.0 Orders Orders Iv Access Insert/Monitor (04/05/18 14:53) Complete Blood Count With Diff (04/05/18 14:53) Basic Metabolic Panel (Bmp) (04/05/18 14:53) Sodium Chlor 0.9% 1000 Ml Inj (Ns 1000 M (04/05/18 16:30) Ed Discharge Order (04/05/18 16:44) Labs Laboratory Tests Test 04/05/18 15:05 White Blood Count 12.0 TH/MM3 Red Blood Count 4.02 MIL/MM3 Hemoglobin 13.2 GM/DL Hematocrit 38.3 % Mean Corpuscular Volume 95.3 FL Mean Corpuscular Hemoglobin 32.7 PG Mean Corpuscular Hemoglobin Concent 34.3 % Red Cell Distribution Width 13.4 % Platelet Count 223 TH/MM3 Mean Platelet Volume 8.6 FL Neutrophils (%) (Auto) 79.1 % Lymphocytes (%) (Auto) 12.6 % Monocytes (%) (Auto) 7.1 % Eosinophils (%) (Auto) 0.7 % Basophils (%) (Auto) 0.5 % Neutrophils # (Auto) 9.5 TH/MM3 Lymphocytes # (Auto) 1.5 TH/MM3 Monocytes # (Auto) 0.9 TH/MM3 Eosinophils # (Auto) 0.1 TH/MM3 Basophils # (Auto) 0.1 TH/MM3 CBC Comment DIFF FINAL Differential Comment Blood Urea Nitrogen 30 MG/DL Creatinine 2.06 MG/DL Random Glucose 105 MG/DL Calcium Level 8.9 MG/DL Sodium Level 139 MEQ/L Potassium Level 4.6 MEQ/L Chloride Level 105 MEQ/L Carbon Dioxide Level 28.6 MEQ/L Anion Gap 5 MEQ/L Estimat Glomerular Filtration Rate 33 ML/MIN MDM Medical Decision Making Medical Screen Exam Complete: Yes Emergency Medical Condition: Yes Medical Record Reviewed: Yes Differential Diagnosis Electrolyte abnormality versus dehydration versus constipation versus normal exam Narrative Course 62-year-old male presents emergency department for evaluation. He states he is here to get imaging of his aortic aneurysm. She was just here on Thursday had imaging studies done in the aneurysm was found to be larger and he was to follow -up with Dr. Jane. I discussed the patient with Dr. Yung, the patient's primary care provider. We agree that the patient does not need further imaging as he is not in pain. We will do basic lab work because the patient's neighbor states he has not been eating or drinking and she is concerned about his hydration status. Laboratory Tests Test 04/05/18 15:05 White Blood Count 12.0 TH/MM3 Red Blood Count 4.02 MIL/MM3 Hemoglobin 13.2 GM/DL Hematocrit 38.3 % Mean Corpuscular Volume 95.3 FL Mean Corpuscular Hemoglobin 32.7 PG Mean Corpuscular Hemoglobin Concent 34.3 % Red Cell Distribution Width 13.4 % Platelet Count 223 TH/MM3 Mean Platelet Volume 8.6 FL Neutrophils (%) (Auto) 79.1 % Lymphocytes (%) (Auto) 12.6 % Monocytes (%) (Auto) 7.1 % Eosinophils (%) (Auto) 0.7 % Basophils (%) (Auto) 0.5 % Neutrophils # (Auto) 9.5 TH/MM3 Lymphocytes # (Auto) 1.5 TH/MM3 Monocytes # (Auto) 0.9 TH/MM3 Eosinophils # (Auto) 0.1 TH/MM3 Basophils # (Auto) 0.1 TH/MM3 CBC Comment DIFF FINAL Differential Comment Blood Urea Nitrogen 30 MG/DL Creatinine 2.06 MG/DL Random Glucose 105 MG/DL Calcium Level 8.9 MG/DL Sodium Level 139 MEQ/L Potassium Level 4.6 MEQ/L Chloride Level 105 MEQ/L Carbon Dioxide Level 28.6 MEQ/L Anion Gap 5 MEQ/L Estimat Glomerular Filtration Rate 33 ML/MIN Patient is with mild leukocytosis of 12,000. His creatinine has increased by 0.4 since previous labs. I discussed this with Dr. Yung. He agrees to see him in his office this week. He is to call him for an appointment. Patient is given the records of the imaging study and labs to take with him to the appointment. I discussed this plan with my attending physician who is in agreement with this plan of care. Patient will be discharged home at this time. Diagnosis Primary Impression: Dehydration Referrals: Gregor Jane MD call for appointment TO FOLLOW UP ON Rosy Lala MD call for appointment Patient Instructions: Dehydration (ED), General Instructions Additional Instructions: FOLLOW UP WITH DR YUNG; CALL HIS OFFICE TOMORROW TO SCHEDULE AND APPT FOR THIS WEEK RETURN TO ED WITH ACUTE WORSENING OF SYMPTOMS Med/Other Pt SpecificInfo: No Change to Meds Disposition: 01 DISCHARGE HOME Condition: Stable Josefina Gonzalez JACKSON April 05, 2018 14:47
[2018-04-05 14:52] VITALS: BP 205/101; PULSE 64; RESP 20; O2SAT 95
[2018-04-05 15:38] LABS: AUTOMATED NEUTROPHIL # 9.5 TH/MM3 (1.8-7.7); BASOPHIL # 0.1 TH/MM3 (0-0.2); BASOPHIL % 0.5 % (0.0-2.0); EOSINOPHIL # 0.1 TH/MM3 (0-0.4); EOSINOPHIL % 0.7 % (0.0-4.0); HEMATOCRIT 38.3 % (39.0-51.0); HEMOGLOBIN 13.2 GM/DL (13.0-17.0); LYMPH % 12.6 % (9.0-44.0); LYMPHOCYTE # 1.5 TH/MM3 (1.0-4.8); MEAN CELL VOLUME 95.3 FL (80.0-100.0); MEAN CORPUSCULAR HEMOGLOBIN 32.7 PG (27.0-34.0); MEAN CORPUSCULAR HGB CONC 34.3 % (32.0-36.0); MEAN PLATELET VOLUME 8.6 FL (7.0-11.0); MONO % 7.1 % (0.0-8.0); MONOCYTE # 0.9 TH/MM3 (0-0.9); NEUT % 79.1 % (16.0-70.0); PLATELET COUNT 223 TH/MM3 (150-450); RED BLOOD COUNT 4.02 MIL/MM3 (4.50-5.90); RED CELL DISTRIBUTION WIDTH 13.4 % (11.6-17.2)
[2018-04-05 15:49] LABS: BICARBONATE 28.6 MEQ/L (21.0-32.0); CALCIUM 8.9 MG/DL (8.5-10.1); CREATININE 2.06 MG/DL (0.60-1.30)
[2018-04-05] MEDS ORDERED: SODIUM CHLOR 0.9% 1000 ML INJ 1,000 ML IV ONE (16:30)
[2018-04-05 16:41] VITALS: BP 204/84; PULSE 63; RESP 18; O2SAT 95
--- NOTE | 2018-04-05 17:22 | PD ---
Data Data Last Documented VS Vital Signs Date Time Temp Pulse Resp B/P (MAP) Pulse Ox O2 Delivery O2 Flow Rate FiO2 04/05/18 16:41 63 18 204/84 (124) 95 Room Air 04/05/18 13:42 99.0 Orders Orders Iv Access Insert/Monitor (04/05/18 14:53) Complete Blood Count With Diff (04/05/18 14:53) Basic Metabolic Panel (Bmp) (04/05/18 14:53) Sodium Chlor 0.9% 1000 Ml Inj (Ns 1000 M (04/05/18 16:30) Ed Discharge Order (04/05/18 16:44) Labs Laboratory Tests Test 04/05/18 15:05 White Blood Count 12.0 TH/MM3 Red Blood Count 4.02 MIL/MM3 Hemoglobin 13.2 GM/DL Hematocrit 38.3 % Mean Corpuscular Volume 95.3 FL Mean Corpuscular Hemoglobin 32.7 PG Mean Corpuscular Hemoglobin Concent 34.3 % Red Cell Distribution Width 13.4 % Platelet Count 223 TH/MM3 Mean Platelet Volume 8.6 FL Neutrophils (%) (Auto) 79.1 % Lymphocytes (%) (Auto) 12.6 % Monocytes (%) (Auto) 7.1 % Eosinophils (%) (Auto) 0.7 % Basophils (%) (Auto) 0.5 % Neutrophils # (Auto) 9.5 TH/MM3 Lymphocytes # (Auto) 1.5 TH/MM3 Monocytes # (Auto) 0.9 TH/MM3 Eosinophils # (Auto) 0.1 TH/MM3 Basophils # (Auto) 0.1 TH/MM3 CBC Comment DIFF FINAL Differential Comment Blood Urea Nitrogen 30 MG/DL Creatinine 2.06 MG/DL Random Glucose 105 MG/DL Calcium Level 8.9 MG/DL Sodium Level 139 MEQ/L Potassium Level 4.6 MEQ/L Chloride Level 105 MEQ/L Carbon Dioxide Level 28.6 MEQ/L Anion Gap 5 MEQ/L Estimat Glomerular Filtration Rate 33 ML/MIN [facility] Medical Record Reviewed: Yes Supervised Visit with ANKIT: Yes Narrative Course I, Dr. Moss, have reviewed the advance practice practitioner's documentation and am in agreement, met with the patient face to face, made the diagnosis, and the medical decision making was done by me. *My assessment and Findings: Case reviewed with Dr. Yung. The patient has mild renal insufficiency which is new. He received a liter of IV saline. He will follow-up with Dr. Yung tomorrow or the next day and will call tomorrow for appointment. He has no abdominal pain today and is considered very unlikely for there to have been any progression of abdominal aneurysm. Follow up with Dr. Jane discussed with patient who has verbalized understanding. Follow-up information also provided. Diagnosis Primary Impression: Dehydration Referrals: Gregor Jane MD call for appointment TO FOLLOW UP ON [facility] Patient Instructions: General Instructions, Dehydration (ED) Departure Forms: Tests/Procedures Additional Instruction: FOLLOW UP WITH DR YUNG; CALL HIS OFFICE TOMORROW TO SCHEDULE AND APPT FOR THIS WEEK RETURN TO ED WITH ACUTE WORSENING OF SYMPTOMS Disposition: 01 DISCHARGE HOME Condition: Stable Osmani Moss MD April 05, 2018 17:22
== END 2018-04-05 18:09 | disposition home or self-care (01) ==
LOC: NEPC 13:34
DX: E86.0 Dehydration (principal); I10 Essential (primary) hypertension; E11.9 Type 2 diabetes mellitus without complications; Z87.442 Personal history of urinary calculi; Z79.84 Long term (current) use of oral hypoglycemic drugs
CPT/HCPCS: 80048; 85025; 99283; J7030